=== PATIENT | male | born 1965 | race Caucasian/White ===

== ENCOUNTER 2017-11-28 17:19 | Emergency (ER) | payer MEDICAID ==
[2017-11-28] MEDS ORDERED: Acetaminophen/HYDROcodone 325-5 MG Tab PO ONE (17:20)
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
[2017-11-28] MEDS: Take Home: Acetaminophen/HYDROcodone 325-5 MG, 2 Tab Pack PO ONE (18:25)
== END 2017-11-28 18:28 | disposition home or self-care (01) ==
LOC: CC.ED 17:19
DX: S50.812A Abrasion of left forearm, initial encounter (principal); S60.511A Abrasion of right hand, initial encounter; S89.92XA Unspecified injury of left lower leg, initial encounter; I10 Essential (primary) hypertension; F17.210 Nicotine dependence, cigarettes, uncomplicated; Z88.0 Allergy status to penicillin; Z88.8 Allergy status to other drugs, medicaments and biological substances; Z91.048 Other nonmedicinal substance allergy status; Z79.899 Other long term (current) drug therapy; V86.99XA Unspecified occupant of other special all-terrain or other off-road motor vehicle injured in nontraffic accident, initial encounter
CPT/HCPCS: 71046; 73590-LT; 99284; A9270-GY

== ENCOUNTER → 2018-08-01 | Day surgery (SDC) | payer MEDICAID ==
[2018-08-01] MEDS: Lactated Ringers 1,000 ML IV SCH (09:40)
[2018-08-01] MEDS: Midazolam 1 MG/ML 2 ML SDV IV ONE ×2 (10:08→10:10)
[2018-08-01] MEDS: Meperidine PF 50 MG/ML Syringe IV ONE (10:08)
[2018-08-01] MEDS: Meperidine PF 25 MG/ML Syringe IV ONE (10:13)
[2018-08-01 11:20] VITALS: BP 122/78
--- NOTE | 2018-08-01 13:26 | OR ---
DATE OF OPERATION: 08/01/2018 PREOPERATIVE DIAGNOSIS: SCREENING COLONOSCOPY. POSTOPERATIVE DIAGNOSIS: SCREENING COLONOSCOPY. SURGEON: Robbie Nieto MD PROCEDURE: FULL-LENGTH COLONOSCOPY WITH BIOPSY X2. ANESTHESIA: Conscious sedation with 75 mg of Demerol, 6 mg of Versed with continuous O2 sat monitoring and nurse assist. The patient's sats remained above 90% for the entire procedure. COMPLICATIONS: None. SPECIMEN: Distal sigmoid biopsy x2. FINDINGS: 1. Essentially normal full-length colonoscopy. 2. Nonspecific and very mild focal area of colitis, distal sigmoid colon. RECOMMENDATIONS: Followup colonoscopy every 10 years. INDICATIONS: The patient is a 53-year-old male seen for a physical. His primary provider sent him for a screening exam. DESCRIPTION OF PROCEDURE: The patient was prepped and draped, placed in left lateral decubitus position. A lubricated Olympus colonoscope was inserted and easily advanced to the cecum. Direct visualization of the ileocecal valve and appendiceal orifice was accomplished. The bowel prep was fine. Upon withdrawal of the scope throughout the entire length of the colon, I could find no signs of any polyps, mass, ulceration, or bleeding sites. No vascular abnormalities. In the distal sigmoid colon around 25 cm, the patient had a very nonspecific focal and mild area of colitis. Two biopsies were taken. The rest of the exam was normal. The rectal vault was unremarkable. Retroflexion of the scope showed no perianal lesions. Air was then suctioned, scope removed without complication. ORACIO/GALE /[id number]
== END ==
LOC: CC.SDS 09:31
PROVIDERS: ATTEND Family Medicine
DX: Z12.11 Encounter for screening for malignant neoplasm of colon (principal); K21.9 Gastro-esophageal reflux disease without esophagitis; J44.9 Chronic obstructive pulmonary disease, unspecified; I10 Essential (primary) hypertension; F17.210 Nicotine dependence, cigarettes, uncomplicated; E78.5 Hyperlipidemia, unspecified; Z79.899 Other long term (current) drug therapy; Z88.6 Allergy status to analgesic agent; Z88.0 Allergy status to penicillin
CPT/HCPCS: J2175; J2250; J7120

== ENCOUNTER 2019-02-26 23:26 | Emergency (ER) | payer MEDICAID ==
[~2019-02-26 23:26] MED LIST: Albuterol/Ipratropium 3.0-0.5 MG/3 ML Neb Soln ONE
[2019-02-26] MEDS ORDERED: Albuterol/Ipratropium 3.0-0.5 MG/3 ML Neb Soln INH ONE (23:27)
[2019-02-26] MEDS ORDERED: Albuterol/Ipratropium 3.0-0.5 MG/3 ML Neb Soln NEB ONE (23:35)
[2019-02-26] MEDS ORDERED: Lidocaine 1% 20 ML MDV ONE (23:59)
[2019-02-27 00:03] VITALS: BP 138/77
[2019-02-27] MEDS ORDERED: Take Home: Albuterol/Ipratropium 3.0-0.5 MG/3 ML Neb Soln, 4 Neb Pack NEB ONE (00:04)
--- NOTE | 2019-02-27 00:04 | EDM.PDOC ---
ED HPI GENERAL MEDICAL PROBLEM - General Chief Complaint: General Stated Complaint: trouble breathing Time Seen by Provider: 02/26/19 23:58 Source of Information: Reports: Patient History Limitations: Reports: No Limitations - History of Present Illness INITIAL COMMENTS - FREE TEXT/NARRATIVE: Brock is a 53 year old male who presents to the ED with c/o cold symptoms. He reports for the last few days he has had worsening sinus congestion, cough, and shortness of breath. He does have COPD with extensive smoking history. Continues to smoke 1-3 ppd. Has been using his home albuterol nebs and inhalers without relief. Reports he gets these same symptoms about 10 x/year. Denies any chest pain, fever. Has had productive cough. Had audible wheezes upon presentation, but is feeling better following DuoNeb at the time of my examination. Onset Date: 02/24/19 Duration: Getting Worse Associated Symptoms: Reports: Cough, cough w sputum, Shortness of Breath. 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 Treatments - Related Data Allergies Allergy/AdvReac Type Severity Reaction Status Date / Time Penicillins Allergy Hives Verified 02/26/19 23:30 Yeast Allergy Hives Verified 02/26/19 23:30 aspirin Allergy Hives Uncoded 02/26/19 23:30 environmental Allergy Wheezing Uncoded 02/26/19 23:30 Home Meds: Home Meds Furosemide [Lasix] 40 mg PO BID 05/07/14 [History] Lisinopril 20 mg PO BID 11/09/14 [History] Tiotropium [Spiriva HandiHaler] 1 puff INH DAILY 01/27/15 [History] Cyclobenzaprine [Flexeril] 10 mg PO Q8H PRN 06/30/16 [History] Meloxicam [Mobic] 15 mg PO DAILY PRN 06/30/16 [History] Mometasone/Formoterol [Dulera 200-5 MCG] 2 puff INH BID 06/30/16 [History] Pantoprazole [Protonix] 40 mg PO BID 06/30/16 [History] Albuterol [Ventolin HFA] 1 - 2 puff PO Q4H PRN 07/17/16 [History] Ipratropium [place] 2 spray NASBOTH BID 07/17/16 [History] buPROPion [Wellbutrin XL] 150 mg PO BID 07/17/16 [History] cloNIDine HCl [Clonidine HCl ER] 1 - 2 tab PO DAILY PRN 07/17/16 [History] Hydrochlorothiazide 25 mg PO DAILY 11/15/16 [History] amLODIPine Besylate [Amlodipine Besylate] 10 mg PO DAILY 11/15/16 [History] Indomethacin [Indocin] 50 mg PO TID PRN 06/11/18 [History] Testosterone Cypionate [Depo-Testosterone] 200 mg IM Q30D 06/11/18 [History] Theophylline [[place]-24] 200 mg PO QAM 06/11/18 [History] Diclofenac Sodium [Voltaren 1%] 1 applic TOP BID 07/31/18 [History] Fasenra 30 mg SUBCUT Q30D 07/31/18 [History] Fluticasone Propionate [Flonase] 1 spray NASBOTH DAILY 07/31/18 [History] Ipratropium [Atrovent HFA] 2 puff INH BID PRN 07/31/18 [History] Theophylline Anhydrous [[place]raham-24] 300 mg PO QPM 07/31/18 [History] atorvaSTATin Calcium [Atorvastatin Calcium] 80 mg PO DAILY 07/31/18 [History] Albuterol Sulfate [Albuterol Sulfate Hfa] 1 inh INH Q4H PRN 11/10/18 [History] Albuterol/Ipratropium [DuoNeb 3.0-0.5 MG/3 ML] 3 ml INH Q4H PRN #30 neb [Rx] levoFLOXacin [Levaquin] 500 mg PO DAILY 7 Days #7 tab 02/27/19 [Rx] predniSONE 20 mg PO WITHBREAKFAST 10 Days #15 tab 02/27/19 [Rx] Past Medical History HEENT History: Reports: Cataract Cardiovascular History: Reports: High Cholesterol, Hypertension, SOB on Exertion Other Cardiovascular History: is wearing an event moniter for 30 days as states that he has a history of coughing hard and then "passes out." Has been wearing it for about 3 weeks Respiratory History: Reports: Asthma, COPD, SOB Gastrointestinal History: Reports: GERD, PUD Musculoskeletal History: Reports: Back Pain, Chronic, Neck Pain, Chronic Other Musculoskeletal History: neck pain Neurological History: Reports: Headaches, Chronic Psychiatric History: Reports: None Endocrine/Metabolic History: Reports: None Other Endocrine/Metabolic History: PREDIABETIC Hematologic History: Reports: Other (See Below) Other Hematologic History: POLYCYTHEMIA - Infectious Disease History Infectious Disease History: Reports: Shingles Other Infectious Disease History: shingles 2 yrs ago to back area - Past Surgical History Cardiovascular Surgical History: Reports: None Respiratory Surgical History: Reports: None Neurological Surgical History: Reports: Other (See Below) Musculoskeletal Surgical History: Reports: None Social & Family History - Tobacco Use Smoking Status *Q: Current Every Day Smoker Years of Tobacco use: 43 Packs/Tins Daily: 3 - Caffeine Use Caffeine Use: Reports: Coffee - Recreational Drug Use Recreational Drug Use: No ED ROS GENERAL - Review of Systems Review Of Systems: ROS reveals no pertinent complaints other than HPI. Constitutional: Reports: No Symptoms. Denies: Fever, Chills, Malaise, Weakness , Fatigue, Diaphoresis, Decreased Appetite HEENT: Reports: Rhinitis, Sinus Problem. Denies: Ear Pain, Throat Pain Respiratory: Reports: Shortness of Breath, Wheezing, Cough, Sputum. Denies: Pleuritic Chest Pain, Hemoptysis Cardiovascular: Reports: Dyspnea on Exertion. Denies: Chest Pain, Edema, Lightheadedness, Palpitations, Syncope Endocrine: Denies: Fatigue GI/Abdominal: Denies: Abdominal Pain, Diarrhea, Nausea, Vomiting : Reports: No Symptoms Musculoskeletal: Reports: No Symptoms Skin: Reports: No Symptoms Neurological: Reports: No Symptoms Psychiatric: Reports: No Symptoms Hematologic/Lymphatic: Reports: No Symptoms Immunologic: Reports: No Symptoms ED EXAM, GENERAL - Physical Exam Exam: See Below Exam Limited By: No Limitations General Appearance: Alert, WD/WN, No Apparent Distress Eye Exam: Bilateral Eye: EOMI, Normal Fundi, Normal Inspection, PERRL Ears: Normal External Exam, Normal Canal, Hearing Grossly Normal, Normal TMs Nose: Nasal Swelling, Nasal Drainage Throat/Mouth: Normal Inspection, Normal Lips, Normal Teeth, Normal Gums, Normal Oropharynx, Normal Voice, No Airway Compromise Head: Atraumatic, Normocephalic Neck: Normal Inspection, Supple, Non-Tender, Full Range of Motion Respiratory/Chest: No Respiratory Distress, No Accessory Muscle Use, Chest Non- Tender, Decreased Breath Sounds, Wheezing, Prolonged Expiration Cardiovascular: Normal Peripheral Pulses, Regular Rate, Rhythm, No Edema, No Murmur, Tachycardia Neurological: Alert, Oriented, CN II-XII Intact, Normal Cognition, Normal Gait, Normal Reflexes, No Motor/Sensory Deficits Psychiatric: Normal Affect, Normal Mood Skin Exam: Warm, Dry, Intact, Normal Color, No Rash Lymphatic: No Adenopathy Course - Vital Signs Last Recorded V/S: Last Vital Signs Temp 97.7 F 02/27/19 00:00 Pulse 105 H 02/27/19 00:00 Resp 20 02/27/19 00:00 BP 138/77 02/27/19 00:00 Pulse Ox 97 02/27/19 00:00 - Orders/Labs/Meds Orders: Active Orders 24 hr Category Date Time Status RT Aerosol Therapy [RC] ASDIRECTED Care 02/26/19 23:35 Active Meds: Medications Discontinued Medications Generic Name Dose Route Start Last Admin Trade Name Freq PRN Reason Stop Dose Admin Albuterol/Ipratropium 3 ml 02/26/19 23:35 Duoneb 3.0-0.5 Mg/3 Ml NEB 02/26/19 23:36 ONETIME ONE Albuterol/Ipratropium Confirm 02/26/19 23:25 Duoneb 3.0-0.5 Mg/3 Ml Administered 02/26/19 23:26 Dose 3 ml .ROUTE .STK-MED ONE Albuterol/Ipratropium 1 packet 02/27/19 00:04 Take Home: Albuterol/Ipratropium, 4 Neb Pack NEB 02/27/19 00:05 ONETIME ONE Ceftriaxone Sodium 1 gm 02/27/19 00:05 Rocephin IM 02/27/19 00:06 ONETIME ONE Methylprednisolone Acetate 80 mg 02/27/19 00:05 Depo-Medrol IM 02/27/19 00:06 ONETIME ONE Departure - Departure Time of Disposition: 00:12 Disposition: Home, Self-Care 01 Condition: Fair Clinical Impression: COPD with exacerbation - Discharge Information *PRESCRIPTION DRUG MONITORING PROGRAM REVIEWED*: Not Applicable *COPY OF PRESCRIPTION DRUG MONITORING REPORT IN PATIENT FRANCISCO: Not Applicable Prescriptions: Albuterol/Ipratropium [DuoNeb 3.0-0.5 MG/3 ML] 3 ml INH Q4H PRN #30 neb PRN Reason: Shortness Of Breath levoFLOXacin [Levaquin] 500 mg PO DAILY 7 Days #7 tab predniSONE 20 mg PO WITHBREAKFAST 10 Days #15 tab Instructions: Chronic Obstructive Pulmonary Disease Exacerbation, [id number] Forms: ED Department Discharge Additional Instructions: - Levaquin daily x 7 days - Prednisone 40 mg daily x 5 days then 20 mg daily x 5 days - Duoneb 1 neb every 4 hours as needed for shortness of breath - Meds can be picked up at [facility] - Mucinex DM twice daily until symptoms improve - Continue all other home medications as previously prescribed - Strongly encourage smoking cessation - Follow up with PCP if symptoms worsen or do not seem to be improving - My Orders Last 24 Hours: My Active Orders 02/26/19 23:35 RT Aerosol Therapy [RC] ASDIRECTED - Assessment/Plan Last 24 Hours: My Active Orders 02/26/19 23:35 RT Aerosol Therapy [RC] ASDIRECTED
[2019-02-27] MEDS ORDERED: methylPREDNISolone Acetate 80 MG/ML SDV IM ONE (00:05)
[2019-02-27] MEDS ORDERED: cefTRIAXone 1 GM Vial IM ONE (00:05)
== END 2019-02-27 00:25 | disposition home or self-care (01) ==
LOC: CC.ED 23:26
DX: J44.1 Chronic obstructive pulmonary disease with (acute) exacerbation (principal); F17.210 Nicotine dependence, cigarettes, uncomplicated; I10 Essential (primary) hypertension; E78.00 Pure hypercholesterolemia, unspecified; K21.9 Gastro-esophageal reflux disease without esophagitis; Z79.899 Other long term (current) drug therapy; Z88.0 Allergy status to penicillin; Z91.09 Other allergy status, other than to drugs and biological substances; Z88.6 Allergy status to analgesic agent
CPT/HCPCS: 94640; 96372; 99284; J0696; J1040; J2001; J7620-GY

== ENCOUNTER 2019-06-22 15:01 | Emergency (ER) | payer MEDICAID ==
[2019-06-22 15:09] VITALS: BP 109/86; PULSE 90
--- NOTE | 2019-06-22 15:55 | EDM.PDOC ---
ED HPI GENERAL MEDICAL PROBLEM - General Chief Complaint: General Stated Complaint: R) shoulder pain Time Seen by Provider: 06/22/19 15:30 Source of Information: Reports: Patient History Limitations: Reports: No Limitations - History of Present Illness INITIAL COMMENTS - FREE TEXT/NARRATIVE: Brock is a 53 yo male who presents to the ED with complaints of right shoulder pain. States he thinks he popped his shoulder out. Admits today around 1:30 this afternoon he was putting on his pants and when he went to pull up his pants he heard a loud pop from his shoulder. Admits to immediate pain. States if he keeps his arm at his side he doesn't have any pain. Any movement causes discomfort. States he is able to move his arm all around though. - Related Data Allergies Allergy/AdvReac Type Severity Reaction Status Date / Time Penicillins Allergy Hives Verified 06/22/19 15:11 Yeast Allergy Hives Verified 06/22/19 15:11 aspirin Allergy Hives Uncoded 06/22/19 15:11 environmental Allergy Wheezing Uncoded 06/22/19 15:11 Home Meds: Home Meds Furosemide [Lasix] 40 mg PO BID 05/07/14 [History] Lisinopril 20 mg PO BID 11/09/14 [History] Tiotropium [Spiriva HandiHaler] 1 puff INH DAILY 01/27/15 [History] Cyclobenzaprine [Flexeril] 10 mg PO Q8H PRN 06/30/16 [History] Meloxicam [Mobic] 15 mg PO DAILY PRN 06/30/16 [History] Mometasone/Formoterol [Dulera 200-5 MCG] 2 puff INH BID 06/30/16 [History] Pantoprazole [Protonix] 40 mg PO BID 06/30/16 [History] Albuterol [Ventolin HFA] 1 - 2 puff PO Q4H PRN 07/17/16 [History] Ipratropium Schulter 2 spray NASBOTH BID 07/17/16 [History] buPROPion [Wellbutrin XL] 150 mg PO BID 07/17/16 [History] cloNIDine HCl [Clonidine HCl ER] 1 - 2 tab PO DAILY PRN 07/17/16 [History] Hydrochlorothiazide 25 mg PO DAILY 11/15/16 [History] amLODIPine Besylate [Amlodipine Besylate] 10 mg PO DAILY 11/15/16 [History] Indomethacin [Indocin] 50 mg PO TID PRN 06/11/18 [History] Testosterone Cypionate [Depo-Testosterone] 200 mg IM Q30D 06/11/18 [History] Theophylline [Graham-24] 200 mg PO QAM 06/11/18 [History] Diclofenac Sodium [Voltaren 1%] 1 applic TOP BID 07/31/18 [History] Fasenra 30 mg SUBCUT Q30D 07/31/18 [History] Fluticasone Propionate [Flonase] 1 spray NASBOTH DAILY 07/31/18 [History] Ipratropium [Atrovent HFA] 2 puff INH BID PRN 07/31/18 [History] Theophylline Anhydrous [Graham-24] 300 mg PO QPM 07/31/18 [History] atorvaSTATin Calcium [Atorvastatin Calcium] 80 mg PO DAILY 07/31/18 [History] Albuterol Sulfate [Albuterol Sulfate Hfa] 1 inh INH Q4H PRN 11/10/18 [History] Albuterol/Ipratropium [DuoNeb 3.0-0.5 MG/3 ML] 3 ml INH Q4H PRN #30 neb [Rx] Past Medical History HEENT History: Reports: Cataract Cardiovascular History: Reports: High Cholesterol, Hypertension, SOB on Exertion Other Cardiovascular History: is wearing an event moniter for 30 days as states that he has a history of coughing hard and then "passes out." Has been wearing it for about 3 weeks Respiratory History: Reports: Asthma, COPD, SOB Gastrointestinal History: Reports: GERD, PUD Musculoskeletal History: Reports: Back Pain, Chronic, Neck Pain, Chronic Other Musculoskeletal History: neck pain Neurological History: Reports: Headaches, Chronic Psychiatric History: Reports: None Endocrine/Metabolic History: Reports: None Other Endocrine/Metabolic History: PREDIABETIC Hematologic History: Reports: Other (See Below) Other Hematologic History: POLYCYTHEMIA - Infectious Disease History Infectious Disease History: Reports: Shingles Other Infectious Disease History: shingles 2 yrs ago to back area - Past Surgical History HEENT Surgical History: Reports: Cataract Surgery Other HEENT Surgeries/Procedures: L) eye Cardiovascular Surgical History: Reports: None Other Cardiovascular Surgeries/Procedures: angiogram Respiratory Surgical History: Reports: None Neurological Surgical History: Reports: Other (See Below) Musculoskeletal Surgical History: Reports: None, Other (See Below) Other Musculoskeletal Surgeries/Procedures:: Neck infusion (2009) Social & Family History - Family History Family Medical History: Noncontributory - Tobacco Use Smoking Status *Q: Former Smoker Years of Tobacco use: 43 Packs/Tins Daily: 1 Used Tobacco, but Quit: No - Caffeine Use Caffeine Use: Reports: Coffee - Recreational Drug Use Recreational Drug Use: No ED ROS GENERAL - Review of Systems Review Of Systems: Comprehensive ROS is negative, except as noted in HPI. ED EXAM, GENERAL - Physical Exam Exam: See Below Exam Limited By: No Limitations General Appearance: Alert, No Apparent Distress Extremities: Arm Pain (right shoulder), Limited Range of Motion, Other ( Negative empty can test. Positive speeds. Negative apprension/relocation. Active ROM is limited. Full passive ROM with discomfort upon abduction. ) Neurological: Alert, Oriented, No Motor/Sensory Deficits Psychiatric: Normal Affect, Normal Mood Skin Exam: Warm, Dry, Intact, Normal Color Course - Vital Signs Last Recorded V/S: Last Vital Signs Temp 98.4 F 06/22/19 15:06 Pulse 90 06/22/19 15:06 Resp 18 06/22/19 15:06 BP 109/86 06/22/19 15:06 Pulse Ox 98 06/22/19 15:06 - Orders/Labs/Meds Orders: Active Orders 24 hr Category Date Time Status Shoulder Comp Rt [CR] Stat Exams 06/22/19 15:06 Taken Departure - Departure Time of Disposition: 15:53 Disposition: Home, Self-Care 01 Clinical Impression: Pain of right shoulder joint on movement - Discharge Information Instructions: Shoulder Pain Referrals: Igor Carlisle PA-C [Primary Care Provider] - Additional Instructions: 1) Arm sling fitted today and advise wearing daily 2) Will set up with physical therapy tomorrow for reevaluation 3) Recommend taking Tylenol 650mg every 4-6 hours as needed for pain 4) If pain persists, will need MRI of right shoulder. 5) I reviewed x-rays today and see no obvious acute deficits, dislocations, etc... 6) Return to ED if symptoms worsen. Sepsis Event Note - Evaluation Sepsis Screening Result: No Definite Risk - Focused Exam Vital Signs: Vital Signs Temp Pulse Resp BP Pulse Ox 06/22/19 15:06 98.4 F 90 18 109/86 98 Date Exam was Performed: 06/22/19 Time Exam was Performed: 15:49 - Problem List & Annotations (1) Pain of right shoulder joint on movement SNOMED Code(s): 368656593 Code(s): M25.511 - PAIN IN RIGHT SHOULDER Status: Acute Current Visit: Yes - My Orders Last 24 Hours: My Active Orders 06/22/19 15:06 Shoulder Comp Rt [CR] Stat - Assessment/Plan Last 24 Hours: My Active Orders 06/22/19 15:06 Shoulder Comp Rt [CR] Stat Plan: See additional instructions.
== END 2019-06-22 16:40 | disposition home or self-care (01) ==
LOC: CC.ED 15:01
DX: M25.511 Pain in right shoulder (principal); I10 Essential (primary) hypertension; E78.00 Pure hypercholesterolemia, unspecified; J44.9 Chronic obstructive pulmonary disease, unspecified; K21.9 Gastro-esophageal reflux disease without esophagitis; Z87.891 Personal history of nicotine dependence; Z88.0 Allergy status to penicillin; Z91.048 Other nonmedicinal substance allergy status; Z79.899 Other long term (current) drug therapy
CPT/HCPCS: 73030-RT; 99283-25

== ENCOUNTER 2020-09-17 14:25 | Emergency (ER) | payer MEDICAID ==
[2020-09-17 14:43] VITALS: BP 159/86; PULSE 96
--- NOTE | 2020-09-17 14:55 | EDM.PDOC ---
ED HPI GENERAL MEDICAL PROBLEM - General Chief Complaint: General Stated Complaint: Fell Time Seen by Provider: 09/17/20 14:54 Source of Information: Reports: Patient History Limitations: Reports: No Limitations - History of Present Illness INITIAL COMMENTS - FREE TEXT/NARRATIVE: Brock is a 55 yo male who presents to the ED with c/o an episode of cough syncope in which he fell and landed on the right side of his face. He reports he has a longstanding history of cough syncope, dating back approximately 28 years. He reports that typically he can tell when he is going to have syncopal episode, but this time he coughed and then had syncopal episode in which he fell to the floor. Was witnessed by bystanders. Reports very short time of syncope. He reports he hit his face on the tile floor. Does have hematoma to right forehead as well as subconjunctival hemorrhage to right eye. He reports pain to his neck. Is concerned as he has a fusion in his C-spine. Does have chronic neck pain as well as neuropathy. He reports he has had cold symptoms for the past few days. Does have severe asthma and COPD. He reports he has had some sinus congestion and dry tight cough. Does report he did start his self start prednisone on . Has been taking 40 mg prednisone the last 2 days. He denies any fever, chills, N/V/D, body aches, sore throat. Does feel slightly more SOB than baseline. Reports since his fall he has some mid sternum chest pain. Onset: Today, Sudden Location: Reports: Face, Neck, Chest Quality: Reports: Ache Associated Symptoms: Reports: Chest Pain, Cough, cough w sputum, Shortness of Breath, Syncope. Denies: Confusion, Diaphoresis, Fever/Chills, Headaches, Loss of Appetite, Malaise, Nausea/Vomiting, Rash, Seizure, Weakness Frontal Head Pain Score (Numeric/FACES): 8 - Related Data Allergies Allergy/AdvReac Type Severity Reaction Status Date / Time Penicillins Allergy Hives Verified 09/17/20 15:39 Yeast Allergy Hives Verified 09/17/20 15:39 aspirin Allergy Hives Uncoded 09/17/20 15:39 environmental Allergy Wheezing Uncoded 09/17/20 15:39 Home Meds: Home Meds Furosemide [Lasix] 40 mg PO BID 05/07/14 [History] Lisinopril 20 mg PO BID 11/09/14 [History] Tiotropium [Spiriva HandiHaler] 1 puff INH DAILY 01/27/15 [History] Cyclobenzaprine [Flexeril] 10 mg PO Q8H PRN 06/30/16 [History] Meloxicam [Mobic] 15 mg PO DAILY PRN 06/30/16 [History] Mometasone/Formoterol [Dulera 200-5 MCG] 2 puff INH BID 06/30/16 [History] Pantoprazole [Protonix] 40 mg PO BID 06/30/16 [History] Albuterol [Ventolin HFA] 1 - 2 puff PO Q4H PRN 07/17/16 [History] Ipratropium Holden 2 spray NASBOTH BID 07/17/16 [History] buPROPion [Wellbutrin XL] 150 mg PO BID 07/17/16 [History] cloNIDine HCL [Clonidine HCl ER] 1 - 2 tab PO DAILY PRN 07/17/16 [History] Hydrochlorothiazide 25 mg PO DAILY 11/15/16 [History] amLODIPine Besylate [Amlodipine Besylate] 10 mg PO DAILY 11/15/16 [History] Indomethacin [Indocin] 50 mg PO TID PRN 06/11/18 [History] Testosterone Cypionate [Depo-Testosterone] 200 mg IM Q30D 06/11/18 [History] Theophylline [Graham-24] 200 mg PO QAM 06/11/18 [History] Fasenra 30 mg SUBCUT Q30D 07/31/18 [History] Fluticasone Propionate [Flonase] 1 spray NASBOTH DAILY 07/31/18 [History] Ipratropium [Atrovent HFA] 2 puff INH BID PRN 07/31/18 [History] Theophylline Anhydrous [Graham-24] 300 mg PO QPM 07/31/18 [History] atorvaSTATin Calcium [Atorvastatin Calcium] 80 mg PO DAILY 07/31/18 [History] Albuterol Sulfate [Albuterol Sulfate Hfa] 1 inh INH Q4H PRN 11/10/18 [History] Albuterol/Ipratropium [DuoNeb 3.0-0.5 MG/3 ML] 3 ml INH Q4H PRN #30 neb 02/27/19 [Rx] Doxycycline [Vibramycin] 100 mg PO BID 5 Days #10 tab 09/17/20 [Rx] Past Medical History HEENT History: Reports: Cataract Cardiovascular History: Reports: High Cholesterol, Hypertension, SOB on Exertion Other Cardiovascular History: is wearing an event moniter for 30 days as states that he has a history of coughing hard and then "passes out." Has been wearing it for about 3 weeks Respiratory History: Reports: Asthma, COPD, SOB Gastrointestinal History: Reports: GERD, PUD Musculoskeletal History: Reports: Back Pain, Chronic, Neck Pain, Chronic Other Musculoskeletal History: neck pain Neurological History: Reports: Headaches, Chronic Psychiatric History: Reports: None Endocrine/Metabolic History: Reports: None Other Endocrine/Metabolic History: PREDIABETIC Hematologic History: Reports: Other (See Below) Other Hematologic History: POLYCYTHEMIA - Infectious Disease History Infectious Disease History: Reports: Shingles Other Infectious Disease History: shingles 2 yrs ago to back area - Past Surgical History HEENT Surgical History: Reports: Cataract Surgery Other HEENT Surgeries/Procedures: L) eye Cardiovascular Surgical History: Reports: None Other Cardiovascular Surgeries/Procedures: angiogram Respiratory Surgical History: Reports: None Neurological Surgical History: Reports: Other (See Below) Musculoskeletal Surgical History: Reports: None, Other (See Below) Other Musculoskeletal Surgeries/Procedures:: Neck infusion (2009) Social & Family History - Family History Family Medical History: No Pertinent Family History - Caffeine Use Caffeine Use: Reports: Coffee ED ROS GENERAL - Review of Systems Review Of Systems: Comprehensive ROS is negative, except as noted in HPI. ED EXAM, GENERAL - Physical Exam Exam: See Below Exam Limited By: No Limitations General Appearance: Alert, WD/WN, No Apparent Distress Eye Exam: Right Eye: Bleeding (subconjunctival hemorrhage), Periorbital Changes (swelling and bruising noted to upper eyelid), Bilateral Eye: EOMI, PERRL, Other (visual acuity intact) Ears: Normal External Exam, Normal Canal, Hearing Grossly Normal, Normal TMs Nose: Normal Inspection, Normal Mucosa, No Blood Throat/Mouth: Normal Inspection, Normal Lips, Normal Teeth, Normal Gums, Normal Oropharynx, Normal Voice, No Airway Compromise Head: Facial Swelling (swelling to right forehead, hematoma) Neck: Supple, Limited Range of Motion, Tender Midline (C7). No: Tender Lateral Respiratory/Chest: No Respiratory Distress, No Accessory Muscle Use, Rhonchi, Wheezing, Other (tenderness to midsternum). No: Accessory Muscle Use, Retractions Cardiovascular: Normal Peripheral Pulses, Regular Rate, Rhythm, No Edema, No Gallop, No JVD, No Murmur, No Rub GI/Abdominal: Normal Bowel Sounds, Soft, Non-Tender, No Organomegaly, No Di stention, No Abnormal Bruit, No Mass Back Exam: Normal Inspection, Full Range of Motion, NT Extremities: Normal Inspection, Normal Range of Motion, Non-Tender, Normal Capillary Refill, No Pedal Edema Neurological: Alert, Oriented, CN II-XII Intact, Normal Cognition, Normal Gait, Normal Reflexes, No Motor/Sensory Deficits Psychiatric: Normal Affect, Normal Mood Skin Exam: Ecchymosis (right eyelid), Other (hematoma right forehead) Front/Back Body Diagram: 1 - Hematoma 2 - Edema and ecchymosis of right upper eyelid, subconjunctival hemorrhage 3 - tenderness to cervical spine Course - Vital Signs Last Recorded V/S: Last Vital Signs Temp 98.9 F 09/17/20 14:38 Pulse 96 09/17/20 14:38 Resp 20 09/17/20 14:38 BP 159/86 H 09/17/20 14:38 Pulse Ox 94 L 09/17/20 14:38 - Orders/Labs/Meds Orders: Active Orders 24 hr Category Date Time Status Cervical Spine wo Cont [CT] Stat Exams 09/17/20 14:52 Taken Chest 2V [CR] Stat Exams 09/17/20 14:37 Taken Head wo Cont [CT] Stat Exams 09/17/20 14:53 Ordered Labs: Laboratory Tests 09/17/20 09/17/20 09/17/20 Range/Units 14:37 14:37 15:13 WBC 12.0 H (5.0-10.0) 10^3/uL RBC 4.71 (4.50-6.00) 10^6/uL Hgb 13.3 L (14.0-18.0) g/dL Hct 39.9 L (40.0-54.0) % MCV 84.7 (82.0-94.0) fL MCH 28.2 (27.0-32.0) pg MCHC 33.3 (33.0-38.0) g/dL RDW Coeff of Pierce 14.5 (11.0-15.0) % Plt Count 179 (150-400) 10^3/uL Neut % (Auto) 68.1 (35-85) % Lymph % (Auto) 24.1 (10-55) % Wheeler % (Auto) 7.6 (0-16) % Eos % (Auto) 0 (0-5) % Baso % (Auto) 0.2 (0-3) % Neut # (Auto) 8.20 H (1.80-7.00) 10^3/uL Lymph # (Auto) 2.90 (1.00-4.80) 10^3/uL Wheeler # (Auto) 0.92 H (0.00-0.80) 10^3/uL Eos # (Auto) 0.00 (0.00-0.45) 10^3/uL Baso # (Auto) 0.02 10^3/uL Sodium 135 L (136-145) mEq/L Potassium 4.4 (3.5-5.0) mEq/L Chloride 99 (98-106) mEq/L Carbon Dioxide 23 (21-32) mmol/L BUN 18 (7-18) mg/dL Creatinine 1.4 H (0.7-1.3) mg/dL Est Cr Clr Drug Dosing 61.02 mL/min Estimated GFR (MDRD) 53 L (>=60) mL/min Glucose 465 H* D (75-99) mg/dL Calcium 8.5 (8.4-10.1) mg/dL C-Reactive Protein < 0.2 L (0.2-0.8) mg/dL SARS CoV-2 RNA Rapid FREDDY Negative (NEGATIVE) Meds: Medications Discontinued Medications Generic Name Dose Route Start Last Admin Trade Name Freq PRN Reason Stop Dose Admin Doxycycline Monohydrate 1 packet 09/17/20 16:07 Take Home: Doxycycline 100 Mg Tab, 4 Tab Pack PO 09/17/20 16:08 ONETIME ONE Promethazine HCl/Codeine 1 packet 09/17/20 16:01 Take Home: Codeine/Promethazine 10-6.25 Mg/5 Ml Syrup 5 Ml, 2 Cup Pack PO 09/17/20 16:02 ONETIME ONE - Re-Assessments/Exams Free Text/Narrative Re-Assessment/Exam: 09/17/20 15:47 Discussed results with patient. Labs all stable. WBC 12. Has been taking steroids. Head and Cspine CT without acute abnormalities. Chest xray without in filtrate. Departure - Departure Time of Disposition: 16:13 Disposition: Home, Self-Care 01 Condition: Fair Clinical Impression: Bronchitis, Subconjunctival hemorrhage of right eye, Neck pain with history of cervical spinal surgery, Cough syncope Traumatic hematoma of forehead Qualifiers: Encounter type: initial encounter Qualified Code(s): S00.83XA - Contusion of other part of head, initial encounter - Discharge Information *PRESCRIPTION DRUG MONITORING PROGRAM REVIEWED*: Not Applicable *COPY OF PRESCRIPTION DRUG MONITORING REPORT IN PATIENT FRANCISCO: Not Applicable Prescriptions: Doxycycline [Vibramycin] 100 mg PO BID 5 Days #10 tab Instructions: Facial or Scalp Contusion, [id number], Subconjunctival Hemorrhage Referrals: PCP,Unknown [Primary Care Provider] - Igor Carlisle PA-C [Physician Masonry Instructor] - Forms: ED Department Discharge Additional Instructions: - Head and Cervical Spine CT without acute findings - Chest xray without acute findings - Ice eye/forehead as needed until swelling improves - As discussed, subconjunctival hemorrhage (blood on right eye) will gradually resolve/absorb - Start doxycycline 100 mg BID x 7 days - Continue prednisone as previously directed - Use cough medicine (promethazine-codeine) 5-10 mL at bedtime as needed for cough - Rest and push fluids - Routine decongestants as needed - Follow up for recheck with PCP 1 week, sooner if any issues or concerns - Return to ED for emergent needs Sepsis Event Note (ED) - Evaluation Sepsis Screening Result: No Definite Risk - Focused Exam Vital Signs: Vital Signs Temp Pulse Resp BP Pulse Ox 09/17/20 14:38 98.9 F 96 20 159/86 H 94 L - Problem List & Annotations (1) Cough syncope SNOMED Code(s): 92673827 Code(s): R05 - COUGH Status: Acute Current Visit: Yes (2) Bronchitis SNOMED Code(s): 39434321 Code(s): J40 - BRONCHITIS, NOT SPECIFIED ACUTE OR CHRONIC Status: Acute Current Visit: Yes (3) Neck pain with history of cervical spinal surgery SNOMED Code(s): 72084142 Code(s): M54.2 - CERVICALGIA; Z98.890 - OTHER SPECIFIED POSTPROCEDURAL STATES Status: Acute Current Visit: Yes (4) Subconjunctival hemorrhage of right eye SNOMED Code(s): 54257501 Code(s): H11.31 - CONJUNCTIVAL HEMORRHAGE, RIGHT EYE Status: Acute Current Visit: Yes (5) Traumatic hematoma of forehead SNOMED Code(s): 185136641, 547128570 Code(s): S00.83XA - CONTUSION OF OTHER PART OF HEAD, INITIAL ENCOUNTER Status: Acute Current Visit: Yes Qualifiers: Encounter type: initial encounter Qualified Code(s): S00.83XA - Contusion of other part of head, initial encounter - My Orders Last 24 Hours: My Active Orders 09/17/20 14:37 Chest 2V [CR] Stat 09/17/20 14:52 Cervical Spine wo Cont [CT] Stat 09/17/20 14:53 Head wo Cont [CT] Stat - Assessment/Plan Last 24 Hours: My Active Orders 09/17/20 14:37 Chest 2V [CR] Stat 09/17/20 14:52 Cervical Spine wo Cont [CT] Stat 09/17/20 14:53 Head wo Cont [CT] Stat Assessment:: Bronchitis Cough Syncope Subconjunctival Hemorrhage Hematoma of Forehead Neck Pain Plan: As above.
[2020-09-17 15:06] LABS: CHLORIDE,CL 99 mEq/L (98-106); SODIUM,NA 135 mEq/L (136-145)
[2020-09-17] MEDS ORDERED: Take Home: Codeine/Promethazine 10-6.25 MG/5 ML Syrup 5 ML, 2 Cup Pack PO ONE (16:01)
[2020-09-17] MEDS ORDERED: Take Home: Doxycycline 100 MG Tab, 4 Tab Pack PO ONE (16:07)
== END 2020-09-17 16:23 | disposition home or self-care (01) ==
LOC: CC.ED 14:25
DX: R55 Syncope and collapse (principal); S00.83XA Contusion of other part of head, initial encounter; S00.11XA Contusion of right eyelid and periocular area, initial encounter; J40 Bronchitis, not specified as acute or chronic; H11.31 Conjunctival hemorrhage, right eye; M54.2 Cervicalgia; E78.00 Pure hypercholesterolemia, unspecified; I10 Essential (primary) hypertension; J44.9 Chronic obstructive pulmonary disease, unspecified; K21.9 Gastro-esophageal reflux disease without esophagitis; Z98.890 Other specified postprocedural states; Z88.0 Allergy status to penicillin; Z91.018 Allergy to other foods; Z88.6 Allergy status to analgesic agent; Z91.048 Other nonmedicinal substance allergy status; Z79.899 Other long term (current) drug therapy; Z20.822 Contact with and (suspected) exposure to COVID-19; W18.30XA Fall on same level, unspecified, initial encounter
CPT/HCPCS: 36415; 70450; 71046; 72125; 80048; 85025; 86140; 87804; 93005; 99285-25; A9270-GY; U0002

== ENCOUNTER 2020-10-04 18:19 | Observation (INO) | payer MEDICAID ==
[2020-10-04] MEDS ORDERED: Glucagon,Human Recombinant 1 MG Vial IM PRN (18:36)
[2020-10-04] MEDS ORDERED: Sodium Chloride 0.9% 1,000 ML IV ONE (18:36)
[2020-10-04] MEDS ORDERED: 50% Dextrose in Water 50 ML Syringe IV PRN (18:36)
[2020-10-04] MEDS ORDERED: Insulin Regular, Human 100 Units/ML 3 ML Vial IV ONE (18:36)
--- NOTE | 2020-10-04 19:11 | EDM.PDOC ---
ED HPI GENERAL MEDICAL PROBLEM - General Chief Complaint: General Stated Complaint: shaky, anxious Time Seen by Provider: 10/04/20 18:35 Source of Information: Reports: Patient History Limitations: Reports: No Limitations - History of Present Illness INITIAL COMMENTS - FREE TEXT/NARRATIVE: Brock is a 55 yo male who had initially called into the hospital with concerns of excessive thirst and shakiness today. Was seen by myself in clinic yesterday with chest wall pain. Had recent bronchitis and fall and was started on prednisone for costochondritis. Patient is a known diabetic with last A1c of 6.8% in June. He does admit his blood sugars have been elevated recently and have been in the 200-300, with occasional up to 400. He denies any abdominal pain, diarrhea, nausea or vomiting. States besides frequent urination, shakiness and excessive thirst he has been feeling okay today. - Related Data Allergies Allergy/AdvReac Type Severity Reaction Status Date / Time Penicillins Allergy Hives Verified 10/04/20 18:23 Yeast Allergy Hives Verified 10/04/20 18:23 aspirin Allergy Hives Uncoded 10/04/20 18:23 environmental Allergy Wheezing Uncoded 10/04/20 18:23 Home Meds: Home Meds Furosemide [Lasix] 20 mg PO DAILY 05/07/14 [History] Lisinopril 20 mg PO DAILY 11/09/14 [History] Cyclobenzaprine [Flexeril] 10 mg PO Q8H PRN 06/30/16 [History] Meloxicam [Mobic] 15 mg PO DAILY PRN 06/30/16 [History] Pantoprazole [Protonix] 40 mg PO DAILY 06/30/16 [History] Ipratropium [place] 2 spray NASBOTH BID 07/17/16 [History] buPROPion [Wellbutrin XL] 150 mg PO BID 07/17/16 [History] cloNIDine HCL [Clonidine HCl ER] 1 - 2 tab PO DAILY PRN 07/17/16 [History] amLODIPine Besylate [Amlodipine Besylate] 10 mg PO DAILY 11/15/16 [History] Testosterone Cypionate [Depo-Testosterone] 200 mg IM Q30D 06/11/18 [History] Theophylline [Graham-24] 200 mg PO QAM 06/11/18 [History] Fasenra 30 mg SUBCUT Q60D 07/31/18 [History] Fluticasone Propionate [Flonase] 2 spray NASBOTH DAILY 07/31/18 [History] Ipratropium [Atrovent HFA] 2 puff INH BID PRN 07/31/18 [History] Theophylline Anhydrous [Graham-24] 300 mg PO QPM 07/31/18 [History] atorvaSTATin Calcium [Atorvastatin Calcium] 80 mg PO DAILY 07/31/18 [History] Albuterol/Ipratropium [DuoNeb 3.0-0.5 MG/3 ML] 3 ml INH QID PRN 10/04/20 [History] Dapsone 100 mg PO DAILY 10/04/20 [History] Hydrocodone/Acetaminophen [Hydrocodone-Acetamin 5-325 mg] 1 - 2 tab PO Q6HR PRN 10/04/20 [History] Montelukast Sodium 10 mg PO DAILY 10/04/20 [History] metFORMIN HCl [Metformin HCl] 500 mg PO BID 10/04/20 [History] Past Medical History HEENT History: Reports: Cataract, Sinusitis Cardiovascular History: Reports: Heart Failure, High Cholesterol, Hypertension, SOB on Exertion Other Cardiovascular History: is wearing an event moniter for 30 days as states that he has a history of coughing hard and then "passes out." Has been wearing it for about 3 weeks Respiratory History: Reports: Asthma, COPD, SOB Gastrointestinal History: Reports: GERD, PUD Musculoskeletal History: Reports: Back Pain, Chronic, Neck Pain, Chronic, Other (See Below) Other Musculoskeletal History: neck pain. neuropathy in hands Neurological History: Reports: Headaches, Chronic Psychiatric History: Reports: None Endocrine/Metabolic History: Reports: Diabetes, Type II Other Endocrine/Metabolic History: PREDIABETIC Hematologic History: Reports: Other (See Below) Other Hematologic History: POLYCYTHEMIA - Infectious Disease History Infectious Disease History: Reports: Shingles Other Infectious Disease History: shingles 2 yrs ago to back area - Past Surgical History HEENT Surgical History: Reports: Cataract Surgery Other HEENT Surgeries/Procedures: L) eye Cardiovascular Surgical History: Reports: None Other Cardiovascular Surgeries/Procedures: angiogram Respiratory Surgical History: Reports: None GI Surgical History: Reports: Hernia, Inguinal Neurological Surgical History: Reports: Other (See Below) Other Neurological Surgeries/Procedures: NECK SX Musculoskeletal Surgical History: Reports: None, Other (See Below) Other Musculoskeletal Surgeries/Procedures:: Neck infusion (2010) Social & Family History - Family History Family Medical History: No Pertinent Family History - Tobacco Use Tobacco Use Status *Q: Current Every Day Tobacco User Years of Tobacco use: 45 Packs/Tins Daily: 0.5 - Caffeine Use Caffeine Use: Reports: Coffee - Recreational Drug Use Recreational Drug Use: No ED ROS GENERAL - Review of Systems Review Of Systems: See Below Constitutional: Reports: No Symptoms. Denies: Chills, Weakness, Night Sweats, Diaphoresis HEENT: Reports: No Symptoms Respiratory: Reports: Pleuritic Chest Pain, Cough (chronic). Denies: Shortness of Breath Cardiovascular: Denies: Chest Pain, Lightheadedness, Palpitations Endocrine: Reports: High Glucose, Polydypsia, Polyuria GI/Abdominal: Denies: Abdominal Pain, Constipation, Diarrhea, Hematemesis, Nausea, Vomiting : Reports: Frequency Musculoskeletal: Reports: No Symptoms Skin: Reports: No Symptoms Neurological: Reports: No Symptoms Psychiatric: Reports: No Symptoms ED EXAM, GENERAL - Physical Exam Exam: See Below Exam Limited By: No Limitations General Appearance: Alert, WD/WN, No Apparent Distress Eye Exam: Bilateral Eye: EOMI, Normal Inspection Ears: Normal External Exam, Hearing Grossly Normal Nose: Normal Inspection, No Blood Throat/Mouth: Normal Inspection, Normal Lips, Normal Oropharynx, Normal Voice, No Airway Compromise Head: Atraumatic, Normocephalic Neck: Normal Inspection, Supple Respiratory/Chest: No Respiratory Distress, Decreased Breath Sounds, Wheezing Cardiovascular: Regular Rate, Rhythm, No Edema, No Murmur GI/Abdominal: Normal Bowel Sounds, Soft, Non-Tender, No Distention Extremities: Normal Inspection, No Pedal Edema Neurological: Alert, Oriented, CN II-XII Intact, Normal Cognition, No Motor/Sensory Deficits Psychiatric: Normal Affect, Normal Mood Skin Exam: Warm, Dry, Intact, Normal Color, No Rash Course - Vital Signs Last Recorded V/S: Last Vital Signs Temp 98 F 10/04/20 19:58 Pulse 95 10/04/20 19:58 Resp 18 10/04/20 19:58 BP 178/88 H 10/04/20 19:58 Pulse Ox 95 10/04/20 19:58 - Orders/Labs/Meds Orders: Active Orders 24 hr Category Date Time Status Chest 2V [CR] Stat Exams 10/04/20 18:45 Taken Dextrose 50% in Water Med 10/04/20 18:36 Active 50 ml IV ASDIRECTED PRN Glucagon,Human Recombinant [GlucaGen] Med 10/04/20 18:36 Active 1 mg IM ASDIRECTED PRN Medication Orders Hydrocodone Bitart/Acetaminophen (Take Home: Acetaminophen/Hydrocodone 325-5 Mg, 2 Tab Pack) packet PO Q6HR PRN PRN Reason: Pain Albuterol/Ipratropium (Albuterol/Ipratropium 3.0-0.5 Mg/3 Ml Neb Soln) 3 ml INH QID PRN PRN Reason: Shortness of Breath Amlodipine Besylate (Amlodipine 10 Mg Tab) 10 mg PO DAILY [facility] Bupropion HCl (Bupropion 150 Mg Tab.Er) 150 mg PO BID [facility] Cyclobenzaprine HCl (Cyclobenzaprine 10 Mg Tab) 10 mg PO Q8H PRN PRN Reason: Muscle Spasm Dextrose/Water (50% Dextrose In Water 50 Ml Syringe) 50 ml IV ASDIRECTED PRN PRN Reason: Hypoglycemia Furosemide (Furosemide 40 Mg Tab) 20 mg PO DAILY [facility] Glucagon (Glucagon,Human Recombinant 1 Mg Vial) 1 mg IM ASDIRECTED PRN PRN Reason: Hypoglycemia Lisinopril (Lisinopril 20 Mg Tab) 20 mg PO DAILY [facility] Metformin HCl (Metformin 500 Mg Tab) 500 mg PO BID [facility] Montelukast Sodium (Montelukast 10 Mg Tab) 10 mg PO DAILY [facility] Non-Formulary Medication (Atorvastatin Calcium [Atorvastatin Calcium]) 80 mg PO DAILY [facility] Non-Formulary Medication (Clonidine Hcl [Clonidine Hcl Er]) 1 - 2 tab PO DAILY PRN PRN Reason: Hypertension Non-Formulary Medication (Theophylline Anhydrous [Graham-24]) 300 mg PO QPM [facility] Non-Formulary Medication (Ipratropium [place] [Ipratropium [place]]) 2 spray NASBOTH BID [facility] Non-Formulary Medication (Dapsone) 100 mg PO DAILY [facility] Pantoprazole Sodium (Take Home: Pantoprazole 40 Mg Tab.Cr, 1 Tab Pack) packet PO DAILY [facility] Theophylline (Theophylline 200 Mg Cap.Er) 200 mg PO QAM [facility] Labs: Laboratory Tests 10/04/20 10/04/20 10/04/20 Range/Units 18:24 18:24 18:24 WBC 8.2 (5.0-10.0) 10^3/uL RBC 4.87 (4.50-6.00) 10^6/uL Hgb 13.7 L (14.0-18.0) g/dL Hct 41.4 (40.0-54.0) % MCV 85.0 (82.0-94.0) fL MCH 28.1 (27.0-32.0) pg MCHC 33.1 (33.0-38.0) g/dL RDW Coeff of Pierce 14.8 (11.0-15.0) % Plt Count 177 (150-400) 10^3/uL Add Manual Diff Yes Neutrophils % (Manual) 88 H (35-85) % Lymphocytes % (Manual) 11 L (21-55) % Monocytes % (Manual) 1 L (2-12) % Absolute Neutrophils 7.22 H (1.80-7.00) 10^3/uL Lymphocytes # (Manual) 0.90 L (1.00-4.80) 10^3/uL Monocytes # (Manual) 0.08 (0.00-0.80) 10^3/uL Sodium 132 L (136-145) mEq/L Potassium 5.0 (3.5-5.0) mEq/L Chloride 96 L (98-106) mEq/L Carbon Dioxide 23 (21-32) mmol/L BUN 13 (7-18) mg/dL Creatinine 1.4 H (0.7-1.3) mg/dL Est Cr Clr Drug Dosing 61.02 mL/min Estimated GFR (MDRD) 53 L (>=60) mL/min Glucose 650 H* D (75-99) mg/dL Calcium 8.9 (8.4-10.1) mg/dL Magnesium 1.9 (1.8-2.4) mg/dL Total Bilirubin 0.4 (0.0-1.0) mg/dL AST 28 (15-37) U/L ALT 47 (12-78) U/L Alkaline Phosphatase 184 H (46-116) U/L Lactate Dehydrogenase 178 (100-190) U/L Total Protein 6.8 (6.4-8.2) g/dL Albumin 3.6 (3.4-5.0) g/dL Amylase 18 L (25-115) U/L Lipase 170 (73-393) U/L Urine Color Light yellow (YELLOW) Urine Appearance Clear (CLEAR) Urine pH 5.5 (4.5-8.0) Ur Specific [place] 1.010 (1.003-1.020) Urine Protein Negative (NEGATIVE) mg/dL Urine Glucose (UA) 500 H (NEGATIVE) mg/dL Urine Ketones Negative (NEGATIVE) mg/dL Urine Occult Blood Negative (NEGATIVE) Urine Nitrite Negative (NEGATIVE) Urine Bilirubin Negative (NEGATIVE) Urine Urobilinogen 0.2 (0.2-1.0) EU/dL Ur Leukocyte Esterase Negative (NEGATIVE) Meds: Medications Generic Name Dose Route Start Last Admin Trade Name Freq PRN Reason Stop Dose Admin Hydrocodone Bitart/Acetaminophen packet 10/04/20 20:44 Take Home: Acetaminophen/Hydrocodone 325-5 Mg, 2 Tab Pack PO Q6HR PRN Pain Albuterol/Ipratropium 3 ml 10/04/20 20:44 Albuterol/Ipratropium 3.0-0.5 Mg/3 Ml Neb Soln INH QID PRN Shortness of Breath Amlodipine Besylate 10 mg 10/05/20 08:00 Amlodipine 10 Mg Tab PO DAILY [facility] Bupropion HCl 150 mg 10/05/20 08:00 Bupropion 150 Mg Tab.Er PO BID [facility] Cyclobenzaprine HCl 10 mg 10/04/20 20:44 Cyclobenzaprine 10 Mg Tab PO Q8H PRN Muscle Spasm Dextrose/Water 50 ml 10/04/20 18:36 50% Dextrose In Water 50 Ml Syringe IV ASDIRECTED PRN Hypoglycemia Furosemide 20 mg 10/05/20 08:00 Furosemide 40 Mg Tab PO DAILY [facility] Glucagon 1 mg 10/04/20 18:36 Glucagon,Human Recombinant 1 Mg Vial IM ASDIRECTED PRN Hypoglycemia Lisinopril 20 mg 10/05/20 08:00 Lisinopril 20 Mg Tab PO DAILY [facility] Metformin HCl 500 mg 10/05/20 08:00 Metformin 500 Mg Tab PO BID [facility] Montelukast Sodium 10 mg 10/05/20 08:00 Montelukast 10 Mg Tab PO DAILY [facility] Non-Formulary Medication 80 mg 10/05/20 08:00 Atorvastatin Calcium [Atorvastatin Calcium] PO DAILY [facility] Non-Formulary Medication 1 - 2 tab 10/04/20 20:44 Clonidine Hcl [Clonidine Hcl Er] PO DAILY PRN Hypertension Non-Formulary Medication 300 mg 10/05/20 20:00 Theophylline Anhydrous [Graham-24] PO QPM [facility] Non-Formulary Medication 2 spray 10/05/20 08:00 Ipratropium [place] [Ipratropium [place]] NASBOTH BID [facility] Non-Formulary Medication 100 mg 10/05/20 08:00 Dapsone PO DAILY [facility] Pantoprazole Sodium packet 10/05/20 08:00 Take Home: Pantoprazole 40 Mg Tab.Cr, 1 Tab Pack PO DAILY [facility] Theophylline 200 mg 10/05/20 08:00 Theophylline 200 Mg Cap.Er PO QAM [facility] Discontinued Medications Generic Name Dose Route Start Last Admin Trade Name Freq PRN Reason Stop Dose Admin Sodium Chloride 1,000 mls @ 999 mls/hr 10/04/20 18:36 10/04/20 18:50 Normal Saline IV 10/04/20 19:36 999 mls/hr .BOLUS ONE Administration Insulin Human Regular 10 unit 10/04/20 18:36 10/04/20 18:53 Insulin Regular, Human 100 Units/Ml 3 Ml Vial IV 10/04/20 18:37 10 units ONETIME ONE Administration Departure - Departure Time of Disposition: 19:30 Disposition: Refer to Observation Clinical Impression: Hyperosmolar non-ketotic state in patient with type 2 diabetes mellitus - Discharge Information *PRESCRIPTION DRUG MONITORING PROGRAM REVIEWED*: Not Applicable *COPY OF PRESCRIPTION DRUG MONITORING REPORT IN PATIENT FRANCISCO: Not Applicable Sepsis Event Note (ED) - Evaluation Sepsis Screening Result: No Definite Risk - Focused Exam Vital Signs: Vital Signs Temp Pulse Resp BP Pulse Ox 10/04/20 18:24 163/94 H 10/04/20 18:19 98.4 F 98 18 203/105 H 94 L - Problem List & Annotations (1) Hyperosmolar non-ketotic state in patient with type 2 diabetes mellitus SNOMED Code(s): 88560996, 77448058 Code(s): E11.00 - TYPE 2 DIAB W HYPROSM W/O NONKET HYPRGLY-HYPROS COMA ([facility]) Status: Acute Current Visit: Yes - Problem List Review Problem List Initiated/Reviewed/Updated: No - My Orders Last 24 Hours: My Active Orders 10/04/20 18:36 Dextrose 50% in Water 50 ml IV ASDIRECTED PRN Glucagon,Human Recombinant [GlucaGen] 1 mg IM ASDIRECTED PRN 10/04/20 18:45 Chest 2V [CR] Stat - Assessment/Plan Admission H&P: Please use this note as an admission H&P Last 24 Hours: My Active Orders 10/04/20 18:36 Dextrose 50% in Water 50 ml IV ASDIRECTED PRN Glucagon,Human Recombinant [GlucaGen] 1 mg IM ASDIRECTED PRN 10/04/20 18:45 Chest 2V [CR] Stat Plan: Advised patient to present to the ED via phone initially. Discussed concerns of elevated blood sugar and will need IV fluids and insulin replacement. Potassium stable at 5.0. Sodium slightly low at 132. Glucose of 650. Consulted with Dr. Nieto and will admit to observation status tonight for close monitoring. Will keep on telemetry tonight. Blood sugars q 2 hours tonight. Lantus 15 units at bedtime
[2020-10-04] MEDS ORDERED: CLONIDINE HCL 0.1 MG PO PRN (20:44)
[2020-10-04] MEDS ORDERED: Albuterol/Ipratropium 3.0-0.5 MG/3 ML Neb Soln INH PRN (20:44)
[2020-10-04] MEDS ORDERED: Cyclobenzaprine 10 MG Tab PO PRN (20:44)
[2020-10-04] MEDS ORDERED: Enoxaparin 40 MG/0.4 ML Syringe SUBCUT SCH (20:47)
[2020-10-04] MEDS ORDERED: Acetaminophen 325 MG Tab PO PRN (20:47)
[2020-10-04] MEDS ORDERED: Temazepam 15 MG Cap PO PRN (20:47)
[2020-10-04] MEDS: Nicotine 21 MG/24 Hr Patch TRDERM SCH (21:00)
[2020-10-04] MEDS: Sodium Chloride 0.9% 1,000 ML IV SCH (21:00)
[2020-10-05] MEDS ORDERED: Acetaminophen/HYDROcodone 325-5 MG Tab PO ONE (00:46)
[2020-10-05] MEDS: Sodium Chloride 0.9% 1,000 ML IV SCH (02:57)
[2020-10-05] MEDS ORDERED: Pantoprazole 40 MG Tab.CR PO SCH (07:00)
[2020-10-05 07:41] VITALS: BP 139/90; PULSE 80
[2020-10-05] MEDS: Nicotine 21 MG/24 Hr Patch TRDERM SCH (07:41)
[2020-10-05 07:51] LABS: CHLORIDE,CL 105 mEq/L (98-106); SODIUM,NA 141 mEq/L (136-145)
[2020-10-05] MEDS ORDERED: Non-Formulary Medication 1 Each (Atorvastatin Calcium [Atorvastatin Calcium] 80 MG Tablet) PO SCH (08:00)
[2020-10-05] MEDS ORDERED: Non-Formulary Medication 1 Each (Ipratropium Bromide [Ipratropium Bromide] 15 ML Spray) NASBOTH SCH (08:00)
[2020-10-05] MEDS ORDERED: buPROPion 150 MG Tab.ER PO SCH (08:00)
[2020-10-05] MEDS ORDERED: Theophylline 200 MG Cap.ER PO SCH (08:00)
[2020-10-05] MEDS ORDERED: Furosemide 40 MG Tab PO SCH (08:00)
[2020-10-05] MEDS ORDERED: metFORMIN 500 MG Tab PO SCH (08:00)
[2020-10-05] MEDS ORDERED: DAPSONE 100 MG PO SCH (08:00)
[2020-10-05] MEDS ORDERED: Lisinopril 20 MG Tab PO SCH (08:00)
[2020-10-05] MEDS ORDERED: amLODIPine 10 MG Tab PO SCH (08:00)
[2020-10-05] MEDS ORDERED: Acetaminophen/HYDROcodone 325-5 MG Tab PO PRN (08:08)
[2020-10-05] MEDS ORDERED: Montelukast 10 MG Tab PO SCH (20:00)
[2020-10-05] MEDS ORDERED: THEOPHYLLINE ANHYDROUS 300 MG PO SCH (20:00)
--- NOTE | 2020-10-06 15:30 | PCM.DCSUM1 ---
Discharge Summary - Hospital Course HPI Initial Comments: Brock is a 55 yo male who had initially called into the hospital with concerns of excessive thirst and shakiness yesterday. Was seen by myself in clinic the day prior with chest wall pain. Had recent bronchitis and a fall, was started on prednisone for costochondritis. Patient is a known diabetic with last A1c of 6.8% in June. He had admitted his blood sugars have been elevated recently and have been in the 200-300, with occasional up to 400. He denies any abdominal pain, diarrhea, nausea or vomiting. States besides frequent urination, shakiness and excessive thirst he has been feeling okay today. Patient was admitted to the hospital in hyperglycemic state. - Discharge Data Discharge Date: 10/05/20 Discharge Disposition: Home, Self-Care 01 Condition: Fair - Referral to Home Health Primary Care Physician: Igor Carlisle PA-C - Discharge Diagnosis/Problem(s) (1) Hyperosmolar non-ketotic state in patient with type 2 diabetes mellitus SNOMED Code(s): 65293473, 50449566 ICD Code: E11.00 - TYPE 2 DIAB W HYPROSM W/O NONKET HYPRGLY-HYPROS COMA ([facility]) Status: Acute - Patient Instructions Diet: Diabetic Diet Activity: As Tolerated - Discharge Plan *PRESCRIPTION DRUG MONITORING PROGRAM REVIEWED*: Not Applicable *COPY OF PRESCRIPTION DRUG MONITORING REPORT IN PATIENT FRANCISCO: Not Applicable Prescriptions/Med Rec: Insulin Glarg,Human.Rec.Analog [Lantus] 15 unit SUBCUT DAILY #3 pen levoFLOXacin [Levaquin] 500 mg PO DAILY #7 tab Home Medications: Home Meds Furosemide [Lasix] 20 mg PO DAILY 05/07/14 [History] Lisinopril 20 mg PO DAILY 11/09/14 [History] Cyclobenzaprine [Flexeril] 10 mg PO Q8H PRN 06/30/16 [History] Meloxicam [Mobic] 15 mg PO DAILY PRN 06/30/16 [History] Pantoprazole [ProTONIX] 40 mg PO DAILY 06/30/16 [History] Ipratropium [place] 2 spray NASBOTH BID 07/17/16 [History] buPROPion [Wellbutrin XL] 150 mg PO BID 07/17/16 [History] cloNIDine HCL [Clonidine HCl ER] 1 - 2 tab PO DAILY PRN 07/17/16 [History] amLODIPine Besylate [Amlodipine Besylate] 10 mg PO DAILY 11/15/16 [History] Testosterone Cypionate [Depo-Testosterone] 200 mg IM Q30D 06/11/18 [History] Theophylline [Graham-24] 200 mg PO QAM 06/11/18 [History] Fasenra 30 mg SUBCUT Q60D 07/31/18 [History] Fluticasone Propionate [Flonase] 2 spray NASBOTH DAILY 07/31/18 [History] Ipratropium [Atrovent HFA] 2 puff INH BID PRN 07/31/18 [History] Theophylline Anhydrous [Graham-24] 300 mg PO QPM 07/31/18 [History] atorvaSTATin Calcium [Atorvastatin Calcium] 80 mg PO DAILY 07/31/18 [History] Albuterol/Ipratropium [DuoNeb 3.0-0.5 MG/3 ML] 3 ml INH QID PRN 10/04/20 [History] Dapsone 100 mg PO DAILY 10/04/20 [History] Hydrocodone/Acetaminophen [Hydrocodone-Acetamin 5-325 mg] 1 - 2 tab PO Q6HR PRN 10/04/20 [History] Montelukast Sodium 10 mg PO DAILY 10/04/20 [History] metFORMIN HCl [Metformin HCl] 500 mg PO BID 10/04/20 [History] Acetaminophen [Tylenol] 650 mg PO Q4H PRN tablet 10/05/20 [Rx] Insulin Glarg,Human.Rec.Analog [Lantus] 15 unit SUBCUT DAILY #3 pen 10/05/20 [Rx] Nicotine [Habitrol] 21 mg TRDERM DAILY patch 10/05/20 [Rx] levoFLOXacin [Levaquin] 500 mg PO DAILY #7 tab 10/05/20 [Rx] Oxygen Therapy Mode: Room Air Patient Handouts: Hyperglycemia, [id number] Forms: ED Department Discharge Referrals: Igor Carlisle PA-C [Primary Care Provider] - (2 weeks - bring daily log of blood sugars with) - Discharge Summary/Plan Comment DC Time >30 min.: Yes Discharge Summary/Plan Comment: Patient's blood sugars are significantly improved and currently mid 150's. No hy poglycemic episodes through out the night. Patient will be started on 15 units of Lantus daily. Daily log of blood sugars to be brought in to follow up appointment. Encourage to continue smoking cessation. Discussed hypoglycemic episodes and signs and symptoms to monitor for. No further prednisone use. Will start oral Levaquin as concerns on chest x-ray possible infiltrate. Patient to continue all pulmonary medications. - General Info Date of Service: 10/05/20 Subjective Update: Brock is feeling a lot better this morning. Denies feeling shaky or having excessive thirst. States he feels he ready to go home. No further increased urination. Patient is walking around and admits he had an uneventful night. Functional Status: Reports: Pain Controlled - Review of Systems General: Reports: No Symptoms HEENT: Reports: No Symptoms Cardiovascular: Reports: No Symptoms Gastrointestinal: Reports: No Symptoms Genitourinary: Reports: No Symptoms Musculoskeletal: Reports: No Symptoms Skin: Reports: No Symptoms Neurological: Reports: No Symptoms - Patient Data Vitals - Most Recent: Last Vital Signs Temp 97.1 F 10/05/20 07:41 Pulse 80 10/05/20 07:41 Resp 18 10/05/20 07:41 BP 139/90 10/05/20 07:41 Pulse Ox 94 L 10/05/20 07:41 Weight - Most Recent: 274 lb 12.8 oz Med Orders - Current: Current Medications Discontinued Medications Acetaminophen (Acetaminophen 325 Mg Tab) 650 mg PO Q4H PRN PRN Reason: Pain (Mild 1-3)/fever Hydrocodone Bitart/Acetaminophen (Acetaminophen/Hydrocodone 325-5 Mg Tab) 0 tab PO Q6H PRN PRN Reason: Pain Hydrocodone Bitart/Acetaminophen (Acetaminophen/Hydrocodone 325-5 Mg Tab) 2 tab PO ONETIME ONE Stop: 10/05/20 00:47 Last Admin: 10/05/20 00:55 Dose: 1 tab Documented by: Albuterol/Ipratropium (Albuterol/Ipratropium 3.0-0.5 Mg/3 Ml Neb Soln) 3 ml INH QID PRN PRN Reason: Shortness of Breath Amlodipine Besylate (Amlodipine 10 Mg Tab) 10 mg PO DAILY [facility] Bupropion HCl (Bupropion 150 Mg Tab.Er) 150 mg PO BID [facility] Cyclobenzaprine HCl (Cyclobenzaprine 10 Mg Tab) 10 mg PO Q8H PRN PRN Reason: Muscle Spasm Dextrose/Water (50% Dextrose In Water 50 Ml Syringe) 50 ml IV ASDIRECTED PRN PRN Reason: Hypoglycemia Enoxaparin Sodium (Enoxaparin 40 Mg/0.4 Ml Syringe) 40 mg SUBCUT Q24H [facility] Last Admin: 10/04/20 21:00 Dose: 40 mg Documented by: Furosemide (Furosemide 40 Mg Tab) 20 mg PO DAILY [facility] Glucagon (Glucagon,Human Recombinant 1 Mg Vial) 1 mg IM ASDIRECTED PRN PRN Reason: Hypoglycemia Sodium Chloride (Normal Saline) 1,000 mls @ 999 mls/hr IV .BOLUS ONE Stop: 10/04/20 19:36 Last Admin: 10/04/20 18:50 Dose: 999 mls/hr Documented by: Sodium Chloride (Normal Saline) 1,000 mls @ 150 mls/hr IV ASDIRECTED [facility] Last Admin: 10/05/20 02:57 Dose: 150 mls/hr Documented by: Insulin Human Regular (Insulin Regular, Human 100 Units/Ml 3 Ml Vial) 10 unit IV ONETIME ONE Stop: 10/04/20 18:37 Last Admin: 10/04/20 18:53 Dose: 10 units Documented by: Lisinopril (Lisinopril 20 Mg Tab) 20 mg PO DAILY [facility] Metformin HCl (Metformin 500 Mg Tab) 500 mg PO BID [facility] Montelukast Sodium (Montelukast 10 Mg Tab) 10 mg PO BEDTIME [facility] Nicotine (Nicotine 21 Mg/24 Hr Patch) 21 mg TRDERM DAILY [facility] Last Admin: 10/05/20 07:41 Dose: 21 mg Documented by: Non-Formulary Medication (Atorvastatin Calcium [Atorvastatin Calcium]) 80 mg PO DAILY [facility] Non-Formulary Medication (Clonidine Hcl [Clonidine Hcl Er]) 1 - 2 tab PO DAILY PRN PRN Reason: Hypertension Non-Formulary Medication (Theophylline Anhydrous [Graham-24]) 300 mg PO QPM [facility] Non-Formulary Medication (Ipratropium [place] [Ipratropium [place]]) 2 spray NASBOTH BID [facility] Non-Formulary Medication (Dapsone) 100 mg PO DAILY [facility] Pantoprazole Sodium (Pantoprazole 40 Mg Tab.Cr) 40 mg PO ACBREAKFAST [facility] Temazepam (Temazepam 15 Mg Cap) 15 mg PO BEDTIME PRN PRN Reason: Sleep Theophylline (Theophylline 200 Mg Cap.Er) 200 mg PO QAM [facility] - Exam General: Reports: Alert, Oriented, Cooperative, No Acute Distress Lungs: Reports: Normal Respiratory Effort, Decreased Breath Sounds, Wheezing Cardiovascular: Reports: Regular Rate, Regular Rhythm, No Murmurs Extremities: Normal Inspection, No Pedal Edema Skin: Reports: Warm, Dry, Intact Neurological: Reports: No New Focal Deficit Psy/Mental Status: Reports: Alert, Normal Affect, Normal Mood
== END 2020-10-05 11:48 | disposition home or self-care (01) ==
LOC: CC.ED 18:19 → UNDOADMOB 19:54 → CC.MS 19:54
PROVIDERS: ADMIT Physician Assistant Medical; ATTEND Family Medicine
DX: E11.00 Type 2 diabetes mellitus with hyperosmolarity without nonketotic hyperglycemic-hyperosmolar coma (NKHHC) (principal); E78.00 Pure hypercholesterolemia, unspecified; I11.0 Hypertensive heart disease with heart failure; I50.9 Heart failure, unspecified; F17.210 Nicotine dependence, cigarettes, uncomplicated; Z79.4 Long term (current) use of insulin; Z79.899 Other long term (current) drug therapy; Z88.0 Allergy status to penicillin; Z91.09 Other allergy status, other than to drugs and biological substances
CPT/HCPCS: 36415; 71046; 80048; 80053; 81003; 82150; 82962; 83615; 83690; 83735; 85025; 93005; 96372; 99285-25; A9270-GY; G0378; J1650; J1815-GY; J7030

== ENCOUNTER 2020-12-28 16:28 | Inpatient (IN) | payer MEDICAID ==
[2020-12-28] MEDS ORDERED: Acetaminophen 325 MG Tab PO PRN (17:51)
[2020-12-28] MEDS ORDERED: Sodium Chloride 0.9% 10 ML Syringe FLUSH PRN (17:51)
[2020-12-28] MEDS ORDERED: Temazepam 15 MG Cap PO PRN (17:51)
[2020-12-28] MEDS ORDERED: Fluticasone Propionate Nasal Spray 16 GM Bottle NASBOTH PRN (17:54)
[2020-12-28] MEDS ORDERED: 50% Dextrose in Water 50 ML Syringe IVPUSH PRN (17:54)
[2020-12-28] MEDS ORDERED: IPRATROPIUM BROMIDE 0.03% NASBOTH PRN (17:54)
[2020-12-28] MEDS ORDERED: Glucagon,Human Recombinant 1 MG Vial IM PRN (17:54)
[2020-12-28] MEDS ORDERED: amLODIPine 10 MG Tab PO PRN (17:54)
[2020-12-28] MEDS ORDERED: BENRALIZUMAB 30 MG SUBCUT SCH (18:00)
[2020-12-28] MEDS ORDERED: Levofloxacin/Dextrose 5%-Water 500 MG in Premix Bag 1 BAG IV ONE (18:15)
[2020-12-28] MEDS: Nicotine 21 MG/24 Hr Patch TRDERM SCH (18:39)
[2020-12-28] MEDS ORDERED: Insulin Lispro 100 Units/ML 3 ML Vial SUBCUT SCH (20:00)
[2020-12-28] MEDS ORDERED: Insulin Glarg,Human.Rec.Analog 100 Unit/ML SUBCUT SCH (20:00)
[2020-12-28] MEDS: Formoterol/Mometasone 200-5 MCG 8.8 GM Inhaler IH SCH (20:39)
[2020-12-28] MEDS: Montelukast 10 MG Tab PO SCH (20:40)
[2020-12-28] MEDS: metFORMIN 500 MG Tab PO SCH (20:40)
[2020-12-28] MEDS: buPROPion 150 MG Tab.ER PO SCH (20:40)
[2020-12-28] MEDS: Lisinopril 20 MG Tab PO SCH (20:40)
[2020-12-28] MEDS: atorvaSTATin 20 MG Tab PO SCH (20:41)
[2020-12-28] MEDS: Albuterol 0.083% 2.5 MG/3 ML Neb Soln NEB SCH (20:41)
[2020-12-29] MEDS ORDERED: Insulin Lispro 100 Units/ML 3 ML Vial SUBCUT SCH (08:00)
[2020-12-29] MEDS: Albuterol 0.083% 2.5 MG/3 ML Neb Soln NEB SCH ×4 (08:00→19:24)
[2020-12-29] MEDS: metFORMIN 500 MG Tab PO SCH ×2 (08:00→19:43)
[2020-12-29] MEDS: Theophylline 200 MG Cap.ER PO SCH (08:00)
[2020-12-29] MEDS: buPROPion 150 MG Tab.ER PO SCH ×2 (08:00→19:32)
[2020-12-29] MEDS: Furosemide 20 MG Tab PO SCH (08:00)
[2020-12-29] MEDS: Insulin Lispro 100 Units/ML 3 ML Vial SUBCUT SCH ×3 (08:00→17:28)
[2020-12-29] MEDS: Formoterol/Mometasone 200-5 MCG 8.8 GM Inhaler IH SCH ×2 (08:00→19:29)
[2020-12-29] MEDS: Pantoprazole 40 MG Tab.CR PO SCH (08:45)
[2020-12-29] MEDS: Nicotine 21 MG/24 Hr Patch TRDERM SCH (09:08)
[2020-12-29] MEDS ORDERED: cloNIDine 0.1 MG Tab PO PRN (09:13)
[2020-12-29] MEDS ORDERED: Ipratropium 0.02% 0.5 MG/2.5 ML Neb Soln INH PRN (09:15)
[2020-12-29] MEDS: Loratadine 10 MG Tab PO SCH (10:02)
[2020-12-29] MEDS ORDERED: methylPREDNISolone Sodium Succinate 125 MG/2 ML SDV IVPUSH ONE ×2 (10:15→13:15)
--- NOTE | 2020-12-29 11:52 | PN ---
DATE: 12/29/2020 S: Mr. Cody was admitted by Osorio yesterday for COPD exacerbation. He has known COPD and a history of smoking. He presented with URI type symptoms and worsening shortness of breath and wheezing. His lab work is reviewed. His chest x-ray did not show any gross infiltrates and his CRP was minimally elevated. He was admitted for IV Levaquin and steroid treatment. The patient feels better. He was off O2 for a short time and his saturations were 92%, but with ambulation, he is dropping down. He is back up to 2 L today. Feels much more comfortable. Denies any real shortness of breath. Certainly at rest, he does not appear to be having any issues. O: GENERAL: His physical exam shows him to be pleasant and cooperative. NECK: His neck veins are flat. LUNGS: Sounds are diminished, but no audible rales or wheeze today. CARDIAC: Tones are regular. ABDOMEN: Soft. EXTREMITIES: Show no peripheral edema. ASSESSMENT: 1. CHRONIC OBSTRUCTIVE PULMONARY DISEASE WITH EXACERBATION. 2. HYPERTENSION. 3. HYPERLIPIDEMIA. 4. TYPE 2 DIABETES. P: We will start him on some oral Mucinex. Otherwise, continue IV Levaquin. He was not given any steroids today, I will give him one dose at this time. ORACIO/GALE /[id number]
[2020-12-29] MEDS: guaiFENesin 200 MG Tab PO SCH ×2 (12:00→19:30)
[2020-12-29] MEDS: Enoxaparin 40 MG/0.4 ML Syringe SUBCUT SCH (13:00)
[2020-12-29] MEDS ORDERED: Levofloxacin/Dextrose 5%-Water 500 MG in Premix Bag 1 BAG IV SCH (18:00)
[2020-12-29] MEDS: atorvaSTATin 20 MG Tab PO SCH (19:30)
[2020-12-29] MEDS: Lisinopril 20 MG Tab PO SCH (19:31)
[2020-12-29] MEDS: Montelukast 10 MG Tab PO SCH (19:31)
[2020-12-29] MEDS: methylPREDNISolone Sodium Succinate 125 MG/2 ML SDV IV SCH (19:32)
[2020-12-29] MEDS ORDERED: DAPSONE 100 MG PO SCH (20:00)
[2020-12-29] MEDS ORDERED: CLOMIPHENE PO SCH (20:00)
[2020-12-29] MEDS ORDERED: THEOPHYLLINE ANHYDROUS 300 MG PO SCH (20:00)
[2020-12-29] MEDS ORDERED: Insulin Glarg,Human.Rec.Analog 100 Unit/ML SUBCUT SCH (20:00)
[2020-12-30] MEDS: Loratadine 10 MG Tab PO SCH (07:39)
[2020-12-30] MEDS: buPROPion 150 MG Tab.ER PO SCH (07:39)
[2020-12-30] MEDS: metFORMIN 500 MG Tab PO SCH (07:40)
[2020-12-30] MEDS: Pantoprazole 40 MG Tab.CR PO SCH (07:40)
[2020-12-30] MEDS: Theophylline 200 MG Cap.ER PO SCH (07:40)
[2020-12-30] MEDS: guaiFENesin 200 MG Tab PO SCH ×2 (07:41→14:16)
[2020-12-30] MEDS: Furosemide 20 MG Tab PO SCH (07:42)
[2020-12-30] MEDS: Albuterol 0.083% 2.5 MG/3 ML Neb Soln NEB SCH ×2 (07:42→12:12)
[2020-12-30] MEDS: methylPREDNISolone Sodium Succinate 125 MG/2 ML SDV IV SCH (07:44)
[2020-12-30] MEDS: Nicotine 21 MG/24 Hr Patch TRDERM SCH (07:46)
[2020-12-30] MEDS: Formoterol/Mometasone 200-5 MCG 8.8 GM Inhaler IH SCH (07:49)
[2020-12-30] MEDS: Insulin Lispro 100 Units/ML 3 ML Vial SUBCUT SCH (07:49)
[2020-12-30] MEDS ORDERED: Glucagon,Human Recombinant 1 MG Vial IM PRN (09:48)
[2020-12-30] MEDS ORDERED: 50% Dextrose in Water 50 ML Syringe IVPUSH PRN (09:48)
--- NOTE | 2020-12-30 11:21 | PN ---
DATE: 12/30/2020 S: Mr. Cody continues to do well. He has not spiked any temps. He is coughing a little bit more and feels at times "more tight." He has had no fevers. O: VITAL SIGNS: His vitals are stable. He remains in the low 90s on 2 L at this time. He does desat down to 88% when ambulating. He says when he is in his baseline state, he is usually around 92% to 93% on room air. GENERAL: Today shows him to be pleasant and cooperative. HEENT: Remains grossly benign. NECK: Neck veins are nondistended. LUNGS: Lung sounds are a little more rhonchus. He has a little more expiratory wheeze in the apices today. CARDIAC: Tones are regular. ABDOMEN: Appears nontender. EXTREMITIES: No peripheral edema seen. ASSESSMENT: 1. CHRONIC OBSTRUCTIVE PULMONARY DISEASE EXACERBATION. 2. HYPERTENSION. 3. HYPERLIPIDEMIA. 4. TYPE 2 DIABETES. P: The blood sugars are up slightly related to his steroids. I am going to give him some sliding scale insulin as needed for now. We are going to try to wean him off O2. We did talk about maybe going home later today. We will see how he does with his oxygen first. ORACIO/GALE /[id number]
[2020-12-30] MEDS ORDERED: Insulin Lispro 100 Units/ML 3 ML Vial SUBCUT SCH (12:00)
[2020-12-30] MEDS: Enoxaparin 40 MG/0.4 ML Syringe SUBCUT SCH (12:11)
[2020-12-30 12:54] VITALS: BP 138/72; PULSE 99
--- NOTE | 2020-12-30 16:12 | DISCH ---
ADMISSION DIAGNOSES: 1. Chronic obstructive pulmonary disease exacerbation. 2. Hypertension. 3. Nicotine addiction. 4. Type 2 diabetes. DISCHARGE DIAGNOSIS: 1. CHRONIC OBSTRUCTIVE PULMONARY DISEASE WITH EXACERBATION. 2. TYPE 2 DIABETES, REQUIRING INSULIN. 3. HYPERTENSION. 4. HYPERLIPIDEMIA. HISTORY: The patient is a 55-year-old male, normally a patient of Osorio Carlisle'kim with documented known COPD. He continues to smoke. He presented with increasing shortness of breath, wheezing, and cough. A chest x-ray was done which showed some interstitial markings in the perihilar area. No gross pneumonia was seen. Ultimately, he was admitted for COPD exacerbation for appropriate cares. HOSPITAL COURSE: The patient was started on IV Levaquin and ultimately IV Solu- Medrol given his routine respiratory cares including nebulizer therapy. He was initially on 2 L of O2 per nasal cannula and sats were running in the 95 to 96 area. With weaning down, he ran anywhere from 90 to 92. With ambulation, he was anywhere from 88 to 92 depending on his amount of exertion. He states that he typically runs anywhere from 90 to 92 on room air. We have asked him to remain in the hospital for further weaning of his O2, especially with ambulation, but he declines. He would like to go home. We are going to send him home on a finished course of Levaquin and some oral steroids for the next 5 days. The patient will follow up with O[facility] Carlisle in a week for a recheck and monitoring. COMPLICATIONS: During stay were none. CONSULTATIONS: None. DISPOSITION: Discharged home. ORACIO/GALE /[id number]
== END 2020-12-30 16:41 | disposition home or self-care (01) | DRG 192 ==
LOC: UNDOADMIN 16:28 → CC.MS 16:28
PROVIDERS: ADMIT Physician Assistant Medical; ATTEND Family Medicine
DX: J44.1 Chronic obstructive pulmonary disease with (acute) exacerbation (principal); I10 Essential (primary) hypertension; E11.9 Type 2 diabetes mellitus without complications; E78.5 Hyperlipidemia, unspecified; F17.210 Nicotine dependence, cigarettes, uncomplicated; M54.41 Lumbago with sciatica, right side; M54.42 Lumbago with sciatica, left side; Z88.6 Allergy status to analgesic agent; Z88.0 Allergy status to penicillin; Z79.899 Other long term (current) drug therapy; Z98.41 Cataract extraction status, right eye; Z98.42 Cataract extraction status, left eye; Z79.4 Long term (current) use of insulin
CPT/HCPCS: 36415; 71046; 80053; 82947; 83605; 85025; 86140; 94640; A9270-GY; J1650; J1815-GY; J1956; J2930; J7613-GY